=== PATIENT | female | born 1940 | race Caucasian/White ===

== ENCOUNTER 2020-04-15 07:21 | Observation (INO) ==
[~2020-04-15 07:21] MED LIST: Buffered Lidocaine 1% SYRIN 1 ml INTRADERM ONE; Lactated Ringers 1000 ml BAG 1,000 ML IV SCH
[2020-04-15] MEDS ORDERED: ceFAZolin 2 GM PREMIX 2 GM/50 ML BAG ONE (07:47)
[2020-04-15] MEDS ORDERED: Midazolam 5 mg/5 ml VIAL 1 mg/ml 5 ml VIAL (5 mg) ONE (08:16)
[2020-04-15] MEDS ORDERED: Phenylephrine IV 10 MG/ML 1 ml VIAL ONE (08:21)
[2020-04-15] MEDS ORDERED: Propofol 10 MG/ML 20 ML BTL ONE ×2 (08:21→11:29)
[2020-04-15] MEDS ORDERED: ROPIVACAINE 5 MG/ML 30 ML BTL (0.5%) ONE (08:31)
[2020-04-15] MEDS ORDERED: Bupivacaine 0.5% SDV PF 30ML VIAL ONE (08:34)
[2020-04-15] MEDS ORDERED: Famotidine IV 10 MG/ML 2 ml VIAL (20 mg) IV SLOW PU ONE (09:19)
[2020-04-15] MEDS ORDERED: Famotidine IV 10 MG/ML 2 ml VIAL (20 mg) ONE (09:24)
[2020-04-15] MEDS ORDERED: Naloxone 0.4 mg VIAL 0.4 mg/ml 1 ml VIAL IV PRN (10:51)
[2020-04-15] MEDS ORDERED: HYDROmorphone 1 MG/1 ML SYRINGE IV PRN (10:51)
[2020-04-15] MEDS ORDERED: fentaNYL 100 mcg/2 ml 50 MCG/ML VIAL IV PRN (10:51)
[2020-04-15] MEDS ORDERED: Ondansetron 4 mg VIAL 2 MG/ML 2 ml VIAL IV PRN ×2 (10:51→12:29)
[2020-04-15] MEDS ORDERED: oxyCODONE/Acetamin 5/325 mg TAB PO PRN ×2 (12:29)
[2020-04-15] MEDS ORDERED: Magnesium Hydroxide LIQ 30 ML UDC PO PRN (12:29)
[2020-04-15] MEDS ORDERED: diPHENhydraMINE IV 50 MG/ML 1 ml VIAL (BENADRYL) IV PRN (12:29)
[2020-04-15] MEDS ORDERED: Ondansetron ODT 4 mg TAB 4 MG TAB PO PRN (12:29)
[2020-04-15] MEDS ORDERED: Morphine 2 MG/ML SYRINGE IV PRN (12:29)
[2020-04-15] MEDS ORDERED: Lactulose 30 ml UDC PO PRN (12:29)
[2020-04-15] MEDS ORDERED: diPHENhydraMINE 25 mg TAB PO PRN (12:29)
[2020-04-15] MEDS: Lactated Ringers 1000 ml BAG 1,000 ML IV SCH (13:56)
[2020-04-15] MEDS: ceFAZolin 1 GM ADVAN 1 GM in NS 0.9% 50 ML 50 ML IVPB SCH (17:37)
[2020-04-15] MEDS: Magnesium Hydroxide LIQ 30 ML UDC PO SCH (20:50)
[2020-04-16] MEDS: Lactated Ringers 1000 ml BAG 1,000 ML IV SCH (00:04)
[2020-04-16] MEDS: ceFAZolin 1 GM ADVAN 1 GM in NS 0.9% 50 ML 50 ML IVPB SCH ×2 (01:27→10:01)
[2020-04-16] MEDS ORDERED: CMCS:OMEGA-3 FATTY ACID 1000 mg(NF) PO SCH (09:00)
[2020-04-16] MEDS ORDERED: Vitamin THERAPEUTIC TAB PO SCH (09:00)
[2020-04-16] MEDS ORDERED: OMEGA DHA EPA FISH OIL PO SCH (09:00)
[2020-04-16] MEDS ORDERED: Calcium Carb 1250 mg TAB (500 mg elemental calcium) PO SCH (09:00)
[2020-04-16] MEDS: Magnesium Hydroxide LIQ 30 ML UDC PO SCH (09:41)
[2020-04-16 10:07] LABS: Hematocrit 35 % (35-47); Platelet Count 145 10^3/uL (150-450)
[2020-04-16 10:18] LABS: BUN/Creatinine Ratio 21.2 (8-20); Calcium 8.8 mg/dL (8.6-10.3); EGFR African American 44.8 (>60); Potassium 3.5 mmol/L (3.5-5.0)
[2020-04-16 11:41] VITALS: BP 109/38
== END 2020-04-16 14:10 | disposition home or self-care (01) ==
LOC: OR 07:21 → SSU 13:17 → INTOOBSV 13:17
PROVIDERS: ADMIT Orthopaedic Surgery Adult Reconstructive Orthopaedic Surgery; ATTEND Orthopaedic Surgery Adult Reconstructive Orthopaedic Surgery

== ENCOUNTER 2024-03-26 08:21 | Inpatient (IN) ==
[~2024-03-26 08:21] MED LIST changes: +Acetaminophen IV 1 GM/100ML 1,000 MG/100 ML BAG IV ONE; -Lactated Ringers 1000 ml BAG 1,000 ML IV SCH; +Metoclopramide 5 MG/ML VIAL (10 mg) IV PRN; +Naloxone 0.4 mg VIAL 0.4 mg/ml 1 ml VIAL IV PRN
[2024-03-26] MEDS ORDERED: Tranexamic Acid 1 GM/100ML BAG 2,000 MG/200 ML BAG IV ONE (08:45)
[2024-03-26] MEDS ORDERED: ceFAZolin 2 GM in NS PREMIX 2 GM/100 ML BAG IVPB ONE (08:45)
[2024-03-26 09:03] LABS: Rapid COVID-19 Molecular Undetected (Undetected)
[2024-03-26] MEDS: Lactated Ringers 1000 ml BAG 1,000 ML IV SCH ×2 (09:10→18:34)
[2024-03-26] MEDS ORDERED: Midazolam 2 mg/2 ml VIAL 1 mg/ml 2 ml VIAL (2 mg) ONE (09:40)
[2024-03-26] MEDS ORDERED: Dexamethasone IV 4 MG/ML VIAL 1 ml VIAL ONE (09:40)
[2024-03-26] MEDS ORDERED: Ondansetron 4 mg VIAL 2 MG/ML 2 ml VIAL ONE ×2 (09:40→15:30)
[2024-03-26] MEDS ORDERED: fentaNYL 250 mcg/5 ml 50 MCG/ML 5 ml VIAL (250 MCG) ONE (09:40)
[2024-03-26] MEDS ORDERED: Phenylephrine IV 10 MG/ML 1 ml VIAL ONE (12:49)
[2024-03-26] MEDS ORDERED: Magnesium Hydroxide LIQ 30 ML UDC PO PRN (14:25)
[2024-03-26] MEDS ORDERED: Lactulose 30 ml UDC PO PRN (14:25)
[2024-03-26] MEDS ORDERED: Morphine 2 MG/ML SYRINGE IV PRN (14:25)
[2024-03-26] MEDS: Ondansetron 4 mg VIAL 2 MG/ML 2 ml VIAL IV PRN ×2 (15:34→21:44)
[2024-03-26] MEDS ORDERED: fentaNYL 100 mcg/2 ml 50 MCG/ML VIAL ONE (15:39)
[2024-03-26] MEDS: fentaNYL 100 mcg/2 ml 50 MCG/ML VIAL IV PRN (15:40)
[2024-03-26] MEDS: ceFAZolin 2 GM in NS PREMIX 2 GM/100 ML BAG IVPB SCH (20:40)
[2024-03-26] MEDS: Magnesium Hydroxide LIQ 30 ML UDC PO SCH (21:49)
[2024-03-27 06:14] LABS: Hematocrit 38.1 % (35-45); Hemoglobin 12.9 g/dL (11.5-14.3); Mean Platelet Volume 8.5 fL (7.5-11.2); Platelet Count 188 10^3/uL (150-450)
[2024-03-27 06:49] LABS: Calcium 8.2 mg/dL (8.6-10.3); Creatinine, Serum 2.89 mg/dL (0.51-0.95); Potassium 3.8 mmol/L (3.5-5.0); eGFR CKD-EPI 15.5 (>60)
[2024-03-27] MEDS ORDERED: Morphine 2 MG/ML SYRINGE IV PRN (07:22)
[2024-03-27] MEDS: Vitamin THERAPEUTIC TAB PO SCH (11:12)
[2024-03-27] MEDS: ceFAZolin 1 GM ADVAN 1 GM in NS 0.9% 50 ML 50 ML IVPB ONE (11:13)
[2024-03-27 14:39] LABS: Hematocrit 37.6 % (35-45); Hemoglobin 12.5 g/dL (11.5-14.3)
[2024-03-28] MEDS: Ondansetron ODT 4 mg TAB 4 MG TAB PO PRN (00:15)
[2024-03-28 06:36] LABS: Hematocrit 31.7 % (35-45); Hemoglobin 11.1 g/dL (11.5-14.3); Mean Corpuscular Hemoglobin 33.2 pg (27-33); Platelet Count 134 10^3/uL (150-450); Red Blood Count 3.34 10^6/uL (3.63-4.92); Red Cell Distribution Width 13.2 % (12-17); White Blood Count 5.8 10^3/uL (3.8-11.8)
[2024-03-28 06:54] LABS: Calcium 6.7 mg/dL (8.6-10.3); Creatinine, Serum 4.05 mg/dL (0.51-0.95); Potassium 3.2 mmol/L (3.5-5.0); eGFR CKD-EPI 10.4 (>60)
[2024-03-28 07:50] LABS: ABS Lymphocytes 0.5 10^3/uL (1.0-4.8); ABS Monocytes 1.3 10^3/uL (0.0-0.9); Eosinophil % 0.1 %; Lymphocyte % 8.9 %; Nucleated Red Blood Cells % 0.1 %/100WBC (0.0-0.8); RBC Morphology Normal (Normal)
[2024-03-28 08:30] LABS: Urine Appearance Turbid; Urine Bilirubin Negative (Negative); Urine Blood 2+ (Negative); Urine Color Light-Yellow; Urine Glucose Negative (Negative); Urine Ketones Negative (Negative); Urine Nitrite Negative (Negative); Urine Protein 1+ (>=30 mg/dL) (Negative); Urine Specific Gravity 1.017 (1.002-1.030); Urine Urobilinogen Negative (Negative); Urine pH 5.5 (5.0-8.0)
[2024-03-28 08:32] LABS: Urine Creatinine Concentration 71.06 mg/dL (20.00-320.00)
[2024-03-28 08:41] LABS: Urine Bacteria Absent /HPF (Absent); Urine Red Blood Cell 1+(3-5/hpf) /HPF (0-Trace); Urine Squamous Epithelial Cell Present /HPF (Absent); Urine White Blood Cell 1+(6-10/hpf) /HPF (0-Trace)
[2024-03-28] MEDS: Potassium Chloride LIQUID 20 MEQ/15 ML LIQUID PO ONE (08:43)
[2024-03-28] MEDS: Lactated Ringers 1000 ml BAG 1,000 ML IV ONE (08:44)
[2024-03-28 16:11] LABS: Urine Chloride Concentration < 22 mmol/L
[2024-03-28 16:38] LABS: C Reactive Protein 128.56 mg/L (<8.01)
[2024-03-28 17:32] LABS: Hepatitis B Surface Antigen Nonreactive (Nonreactive)
[2024-03-28 17:41] LABS: HIV 4th Generation Nonreactive (Nonreactive)
[2024-03-28 17:50] LABS: Hepatitis B Surface Ab Not Immune (Immune)
[2024-03-28 17:51] LABS: Hepatitis C Antibody Negative (Negative)
[2024-03-29] MEDS: Calcium Carb (TUMS) 500 mg CHEW TAB PO PRN (03:51)
[2024-03-29 06:20] LABS: ABS Eosinophils 0.1 10^3/uL (0.0-0.5); ABS Lymphocytes 0.9 10^3/uL (1.0-4.8); ABS Monocytes 1.1 10^3/uL (0.0-0.9); ABS Neutrophils 4.9 10^3/uL (1.5-7.6); ABS Nucleated RBC 0.01 10^3/ul; Eosinophil % 0.8 %; Hematocrit 30.5 % (35-45); Hemoglobin 10.3 g/dL (11.5-14.3); Lymphocyte % 12.4 %; Mean Corpuscular Hemoglobin 32.7 pg (27-33); Mean Corpuscular Hgb Conc 33.8 g/dL (31-36); Mean Corpuscular Volume 96.5 fL (80-97); Mean Platelet Volume 9.4 fL (7.5-11.2); Nucleated Red Blood Cells % 0.1 %/100WBC (0.0-0.8); Platelet Count 126 10^3/uL (150-450); Red Blood Count 3.17 10^6/uL (3.63-4.92); Red Cell Distribution Width 13.6 % (12-17)
[2024-03-29 07:11] LABS: Calcium 6.8 mg/dL (8.6-10.3); Creatinine, Serum 3.8 mg/dL (0.51-0.95); Potassium 3.4 mmol/L (3.5-5.0); eGFR CKD-EPI 11.2 (>60)
[2024-03-29 08:58] LABS: Magnesium 1.5 mg/dL (1.9-2.7)
[2024-03-29] MEDS: Potassium Chloride LIQUID 20 MEQ/15 ML LIQUID PO ONE (09:03)
[2024-03-29] MEDS: Lactated Ringers 1000 ml BAG 1,000 ML IV SCH (14:49)
[2024-03-29] MEDS: Magnesium Sulf 4 GM/100 ML IV 4,000 MG/100 ML BAG IVPB ONE (16:29)
[2024-03-30 05:48] LABS: ABS Eosinophils 0.1 10^3/uL (0.0-0.5); ABS Lymphocytes 0.9 10^3/uL (1.0-4.8); ABS Neutrophils 7.8 10^3/uL (1.5-7.6); Eosinophil % 1.4 %; Hematocrit 34.2 % (35-45); Hemoglobin 11.7 g/dL (11.5-14.3); Lymphocyte % 8.8 %; Mean Corpuscular Hgb Conc 34.1 g/dL (31-36); Mean Corpuscular Volume 93.7 fL (80-97); Platelet Count 169 10^3/uL (150-450); Red Blood Count 3.65 10^6/uL (3.63-4.92); Red Cell Distribution Width 13.3 % (12-17); White Blood Count 9.9 10^3/uL (3.8-11.8)
[2024-03-30 06:23] LABS: Calcium 7.5 mg/dL (8.6-10.3); Creatinine, Serum 2.76 mg/dL (0.51-0.95); Potassium 3.5 mmol/L (3.5-5.0); eGFR CKD-EPI 16.4 (>60)
[2024-03-30 08:09] LABS: Magnesium 2.7 mg/dL (1.9-2.7)
[2024-03-31 05:53] VITALS: BP 154/67
[2024-03-31 06:10] LABS: Hematocrit 32.9 % (35-45); Hemoglobin 11.4 g/dL (11.5-14.3); Mean Platelet Volume 8.5 fL (7.5-11.2); Platelet Count 196 10^3/uL (150-450)
[2024-03-31 06:28] LABS: Calcium 7.8 mg/dL (8.6-10.3); Creatinine, Serum 2.14 mg/dL (0.51-0.95); Potassium 3.3 mmol/L (3.5-5.0); eGFR CKD-EPI 22.3 (>60)
[2024-03-31] MEDS: Potassium Chloride LIQUID 20 MEQ/15 ML LIQUID PO ONE (08:35)
[2024-03-31 14:04] LABS: Complement C3 63 mg/dL (75 - 175)
[2024-04-01 11:47] LABS: C-ANCA Negative (Negative); P-ANCA Negative (Negative)
[2024-04-01 15:39] LABS: Calprotectin 265 mcg/g
== END 2024-03-31 11:24 | disposition home or self-care (01) | DRG 470 ==
LOC: SSU 08:21 → OR 08:21
PROVIDERS: ADMIT Orthopaedic Surgery Adult Reconstructive Orthopaedic Surgery; ATTEND Orthopaedic Surgery Adult Reconstructive Orthopaedic Surgery

== ENCOUNTER 2024-04-10 09:02 | Inpatient (IN) ==
[2024-04-10 09:36] LABS: ABS Basophils 0.1 10^3/uL (0.0-0.1); ABS Eosinophils 0.2 10^3/uL (0.0-0.5); ABS Lymphocytes 0.9 10^3/uL (1.0-4.8); ABS Monocytes 0.8 10^3/uL (0.0-0.9); ABS Neutrophils 9.4 10^3/uL (1.5-7.6); Eosinophil % 1.5 %; Hematocrit 19.3 % (35-45); Hemoglobin 6.5 g/dL (11.5-14.3); Lymphocyte % 8.1 %; Mean Corpuscular Hemoglobin 31.9 pg (27-33); Mean Corpuscular Hgb Conc 33.5 g/dL (31-36); Mean Corpuscular Volume 95.2 fL (80-97); Mean Platelet Volume 7.2 fL (7.5-11.2); Platelet Count 324 10^3/uL (150-450); Red Blood Count 2.03 10^6/uL (3.63-4.92); Red Cell Distribution Width 13.7 % (12-17); White Blood Count 11.4 10^3/uL (3.8-11.8)
[2024-04-10 09:47] LABS: INR 1.42 (0.83-1.13)
[2024-04-10 10:22] LABS: Albumin 2.8 g/dL (3.2-5.2); Albumin/Globulin Ratio 1.4 (1-3); Calcium 8.5 mg/dL (8.6-10.3); Creatinine, Serum 1.06 mg/dL (0.51-0.95); Potassium 3.8 mmol/L (3.5-5.0); Total Bilirubin 0.5 mg/dL (0.2-1.0); Total Protein 4.8 g/dL (6.4-8.9); eGFR CKD-EPI 51.8 (>60)
[2024-04-10] MEDS: Pantoprazole 80 mg in NS BAG 80 MG/250 ML BAG IV SCH (11:48)
[2024-04-10] MEDS: Pantoprazole VIAL 40 MG VIAL IV ONE (12:21)
[2024-04-10] MEDS: CMC:Mirabegron 25 mg ER TAB (NF) PO SCH (16:09)
[2024-04-10 18:12] LABS: Hematocrit 22.3 % (35-45); Hemoglobin 7.8 g/dL (11.5-14.3)
[2024-04-10] MEDS ORDERED: Ondansetron 4 mg VIAL 2 MG/ML 2 ml VIAL IV PRN (23:40)
[2024-04-11] MEDS: Calcium Carb (TUMS) 500 mg CHEW TAB PO PRN (00:23)
[2024-04-11 05:23] LABS: Hematocrit 19.5 % (35-45); Hemoglobin 6.7 g/dL (11.5-14.3); Mean Corpuscular Hemoglobin 31.6 pg (27-33); Mean Corpuscular Hgb Conc 34.3 g/dL (31-36); Mean Corpuscular Volume 92.2 fL (80-97); Mean Platelet Volume 7.7 fL (7.5-11.2); Platelet Count 243 10^3/uL (150-450); Red Blood Count 2.11 10^6/uL (3.63-4.92); Red Cell Distribution Width 14.7 % (12-17)
[2024-04-11 05:40] LABS: Creatinine, Serum 1.02 mg/dL (0.51-0.95); Potassium 3.7 mmol/L (3.5-5.0); eGFR CKD-EPI 54.2 (>60)
[2024-04-11] MEDS ORDERED: fentaNYL 100 mcg/2 ml 50 MCG/ML VIAL ONE (10:11)
[2024-04-11] MEDS ORDERED: Midazolam 10 mg/10 ml VIAL 1 mg/ml 10 ml VIAL (10 mg) ONE (10:11)
[2024-04-11] MEDS ORDERED: Naloxone 0.4 mg VIAL 0.4 mg/ml 1 ml VIAL IV PUSH PRN (11:06)
[2024-04-11] MEDS ORDERED: Flumazenil 0.5 mg/5 ml 0.1 MG/ML 5 ml VIAL IV PRN (11:06)
[2024-04-11] MEDS: fentaNYL 100 mcg/2 ml 50 MCG/ML VIAL IV SLOW PU ONE (12:17)
[2024-04-11] MEDS: Midazolam 10 mg/10 ml VIAL 1 mg/ml 10 ml VIAL (10 mg) IV SLOW PU ONE (12:18)
[2024-04-11] MEDS: Lidocaine 2% JELLY 6 ML Topical TOPICAL ONE (12:18)
[2024-04-11] MEDS: Ondansetron 4 mg VIAL 2 MG/ML 2 ml VIAL IV ONE (12:19)
[2024-04-11] MEDS: Lactated Ringers 1000 ml BAG 1,000 ML IV ONE (12:27)
[2024-04-11 13:18] LABS: Hematocrit 24.3 % (35-45); Hemoglobin 8.3 g/dL (11.5-14.3)
[2024-04-11 21:17] LABS: Hematocrit 21.1 % (35-45); Hemoglobin 7.2 g/dL (11.5-14.3)
[2024-04-11] MEDS: Pantoprazole VIAL 40 MG VIAL IV SCH (21:20)
[2024-04-12 05:29] LABS: ABS Basophils 0.1 10^3/uL (0.0-0.1); ABS Eosinophils 0.4 10^3/uL (0.0-0.5); ABS Lymphocytes 1.4 10^3/uL (1.0-4.8); ABS Monocytes 0.7 10^3/uL (0.0-0.9); ABS Neutrophils 3.8 10^3/uL (1.5-7.6); Eosinophil % 5.5 %; Hematocrit 21.2 % (35-45); Hemoglobin 7.5 g/dL (11.5-14.3); Mean Corpuscular Hemoglobin 31.5 pg (27-33); Mean Corpuscular Hgb Conc 35.3 g/dL (31-36); Mean Corpuscular Volume 89.2 fL (80-97); Mean Platelet Volume 7.6 fL (7.5-11.2); Nucleated Red Blood Cells % 0.1 %/100WBC (0.0-0.8); Platelet Count 206 10^3/uL (150-450); Red Blood Count 2.37 10^6/uL (3.63-4.92); Red Cell Distribution Width 18.1 % (12-17); White Blood Count 6.4 10^3/uL (3.8-11.8)
[2024-04-12 06:11] LABS: Calcium 7.7 mg/dL (8.6-10.3); Creatinine, Serum 0.92 mg/dL (0.51-0.95); Potassium 3.2 mmol/L (3.5-5.0); eGFR CKD-EPI 61.4 (>60)
[2024-04-12] MEDS: Potassium Chlor 20 meq TAB.ER PO ONE ×2 (08:16→12:36)
[2024-04-12 11:46] LABS: Magnesium 1.4 mg/dL (1.9-2.7)
[2024-04-12 12:52] LABS: Hematocrit 24.2 % (35-45); Hemoglobin 8.3 g/dL (11.5-14.3)
[2024-04-12] MEDS: Magnesium Sulfate 2 gm BAG 2 GM/50 ML BAG IVPB ONE (17:52)
[2024-04-12] MEDS: Magnesium Sulfate IV 1GM/100ML 1 GM/100 ML BAG IV ONE (20:01)
[2024-04-13 06:34] LABS: Hematocrit 22.4 % (35-45); Hemoglobin 7.8 g/dL (11.5-14.3); Mean Corpuscular Hemoglobin 31.4 pg (27-33); Mean Corpuscular Volume 89.7 fL (80-97); Mean Platelet Volume 7.7 fL (7.5-11.2); Platelet Count 219 10^3/uL (150-450); Red Blood Count 2.49 10^6/uL (3.63-4.92); Red Cell Distribution Width 17.8 % (12-17); White Blood Count 5.8 10^3/uL (3.8-11.8)
[2024-04-13 06:52] LABS: Calcium 7.6 mg/dL (8.6-10.3); Creatinine, Serum 0.92 mg/dL (0.51-0.95); Magnesium 2.1 mg/dL (1.9-2.7); Potassium 4.2 mmol/L (3.5-5.0); eGFR CKD-EPI 61.4 (>60)
[2024-04-13 10:39] VITALS: BP 116/67
[2024-04-13 12:48] LABS: Hemoglobin 8.8 g/dL (11.5-14.3)
== END 2024-04-13 14:50 | disposition home or self-care (01) | DRG 378 ==
LOC: EDHOLD 09:02 → ED 09:02 → MEDTELE 15:13
PROVIDERS: ADMIT Internal Medicine; ATTEND Internal Medicine